=== PATIENT | male | born 2000 | race Two or more races ===

== ENCOUNTER 2021-02-14 20:11 | Emergency (ER) | payer OTHER ==
[2021-02-14 20:29] VITALS: BP 139/84
--- NOTE | 2021-02-14 20:43 | ED Physician Documentation ---
PD HPI HEENT - Stated complaint Stated Complaint: FEVER, COUGH - Chief complaint Chief Complaint: Resp - History obtained from History obtained from: Patient - Additional information Additional information: Multiple sick contacts with COVID and he became sick yesterday with fever and cough but no shortness of breath. He does have body aches. 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 Review of Systems Constitutional: reports: Fever, Chills Throat: reports: Sore throat Respiratory: reports: Cough. denies: Dyspnea PD PAST MEDICAL HISTORY - Past Medical History Past Medical History: No - Past Surgical History Past Surgical History: No - Allergies Allergies/Adverse Reactions: Allergies Allergy/AdvReac Type Severity Reaction Status Date / Time No Known Drug Allergies Allergy Verified 02/14/21 20:29 - Social History Does the pt smoke?: No Smoking Status: Never smoker Does the pt drink ETOH?: Yes ETOH Use: Liquor Does the pt have substance abuse?: No - Immunizations Immunizations are current?: Yes - POLST Patient has POLST: No PD ED PE NORMAL - Vitals Vital signs reviewed: Yes - General General: Alert and oriented X 3, No acute distress - Respiratory Respiratory: No respiratory distress - Psych Psych: Normal mood, Normal affect Results - Vitals Vitals: Vital Signs - 24 hr 02/14/21 20:24 Temperature 36.1 C L Heart Rate 88 Respiratory 16 Rate Blood Pressure 139/84 H O2 Saturation 99 Oxygen O2 Source Room air Departure - Departure Disposition: 01 Home, Self Care Clinical Impression: Upper respiratory tract infection Qualifiers: URI type: unspecified viral URI Qualified Code(s): J06.9 - Acute upper respiratory infection, unspecified Condition: Good Instructions: ED Viral Syndrome Comments: You have a Covid test pending. You need to self quarantine until the result is done and negative. Do not leave your house. Do not get near anybody. The results should be done in 48 to 72 hours. We will call with a positive result, the fastest way to get a negative result for confirmation though is to go to the hospital website at [email or web address], click on the my [facility] tab and sign up for the patient portal. If any friends or family get sick and would like to have a Covid test done, but do not have signs or symptoms that would necessitate being hospitalized, there are multiple local options for Covid testing. [facility] keeps an updated list of testing and vaccination options at: [email or web address]. Forms: Activity restrictions
== END 2021-02-14 20:46 | disposition home or self-care (01) ==
LOC: ED 20:11
DX: J06.9 Acute upper respiratory infection, unspecified (principal); Z20.822 Contact with and (suspected) exposure to COVID-19
CPT/HCPCS: 99282; 99283

== ENCOUNTER 2021-04-18 08:00 | Outpatient (CLI) | payer OTHER | END 2021-04-18 23:59 | LOC: LAB.R 08:00 | PROVIDERS: ATTEND Podiatrist | DX: L03.032 Cellulitis of left toe (principal) | CPT/HCPCS: 87070; 87181; 87205; 87252 ==

== ENCOUNTER 2021-06-28 11:04 | Outpatient (CLI) | payer OTHER ==
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
[2021-06-28 12:09] VITALS: BP 166/96
== END 2021-06-28 11:05 | disposition home or self-care (01) ==
LOC: SC 11:04
PROVIDERS: ATTEND Nurse Practitioner Family
DX: R06.83 Snoring (principal); G47.8 Other sleep disorders; R41.89 Other symptoms and signs involving cognitive functions and awareness; G47.10 Hypersomnia, unspecified
CPT/HCPCS: 99203; 99212

== ENCOUNTER 2021-07-31 20:36 | Outpatient (CLI) | payer OTHER | END 2021-07-31 20:37 | disposition home or self-care (01) | LOC: SC 20:36 | PROVIDERS: ATTEND Nurse Practitioner Family | DX: G47.33 Obstructive sleep apnea (adult) (pediatric) (principal) | CPT/HCPCS: 95810 ==

== ENCOUNTER 2022-05-16 08:11 | Outpatient (CLI) | payer OTHER ==
[~2022-05-16 08:11] MED LIST: GADOBUTROL 15 MMOL/15 ML VIAL ONE
[2022-05-16] MEDS ORDERED: GADOBUTROL 15 MMOL/15 ML VIAL IVP ONE (14:02)
--- NOTE | 2022-05-16 16:55 | MRI Report ---
PROCEDURE: MRI brain with and without contrast INDICATIONS: ELEVATED PROLACTIN CONTRAST: gadavist 10.6ml TECHNIQUE: Noncontrast axial T1 spin echo, axial T2 fast spin echo, sagittal and axial FLAIR, coronal T2 fast sp in echo, axial gradient echo, axial diffusion and ADC through the brain. After the administration of contrast, axial and coronal T1 spin echo with fat saturation through the brain. COMPARISON: None. FINDINGS: Image quality: Excellent. CSF spaces: Basal cisterns are patent. No extra-axial fluid collections. Ventricles are normal in size and shape. Pituitary gland: Within the mid pituitary gland, there is a hypoenhancing nodule measuring 5 x 3 x 9 mm. No significant mass effect. Infundibulum is midline. No suprasellar mass lesion or cavernous sinu s involvement. Normal flow-voids noted in the cavernous segments of both internal carotid arteries. Brain: No midline shift. No intracranial bleeds or masses. No abnormal intracranial enhancement. There is cerebral volume loss for age. There is periventricular white matter chronic small vessel is chemic change. The brainstem appears normal. Diffusion-weighted images demonstrate no acute infarct . Normal intravascular flow voids are present. Skull and face: Calvarial marrow is normal in signal. Orbits appear normal. Sinuses: Sinuses and mastoids appear clear. IMPRESSION: Small pituitary microadenoma in the mid gland without mass effect or suprasellar extension Reviewed by: Renaldo Ray MD on 05/16/2022 3:53 PM SAMMIE Approved by: Renaldo Ray MD on 05/16/2022 3:53 PM [email or web address] Station ID: [id number]
== END 2022-05-16 08:12 | disposition home or self-care (01) ==
LOC: DI 08:11
PROVIDERS: ATTEND Student in an Organized Health Care Education/Training Program
DX: E22.1 Hyperprolactinemia (principal); D35.2 Benign neoplasm of pituitary gland
CPT/HCPCS: 70553; A9585